=== PATIENT | female | born 1990 | race Caucasian/White ===

== ENCOUNTER 2023-12-23 12:34 | Emergency (ER) | payer BC, SELFPAY ==
[2023-12-23 12:35] VITALS: BP 152/87; PULSE 100; PULSE 81; RESP 15; RESP 16; TEMP 36.5; O2SAT 97; O2SAT 98; BMI 30.1
--- NOTE | 2023-12-23 12:50 | EKG12_ITS ---
Test Reason : CP Blood Pressure : / mmHG Vent. Rate : 090 BPM Atrial Rate : 090 BPM P-R Int : 154 ms QRS Dur : 084 ms QT Int : 368 ms P-R-T Axes : 050 004 031 degrees QTc Int : 450 ms Normal sinus rhythm with sinus arrhythmia Normal ECG Confirmed by MORTEZA MONTOYA, DEMOND ([id number]), pictures editor LALITHA BARNES ([id number]) on 12/25/2023 9:42:15 AM Referred By: CHANDU Confirmed By:DEMOND PRO MD
--- NOTE | 2023-12-23 12:51 | EX.ED.DYSGE1 ---
HPI History of Present Illness Chief Complaint: Anxiety Informant: patient, spouse/S.O. and EMS Narrative Narrative: 33-year-old healthy female with a history of anxiety and panic disorder who states she was driving with her children in the car today, she started feeling some chest tightness. She states basically this led to a panic attack, but the worst one that she has ever had. It lasted less than 5 minutes, but it was so severe she called EMS, she was having carpal spasms, she was having numbness and tingling everywhere including her lower face both upper and lower extremities, she did not have any syncope, she felt short of breath and sweaty at the time. She states she recently had an injection of Mounjaro for weight loss, this is the first time she has had that injection and she has had several side effects that are listed as common side effects since then including nausea which she does not currently have. She states that she has been feeling more anxious and she has had panic attacks like this in the past, she states she really fears the worst out of everything especially when it comes to medical issues. She is feeling much better right now and has no current symptoms physically. [facility] Medical History (Updated 12/23/23 @ 13:[address] Junior Mcduffie MD) Anxiety Panic disorder Allergy/AdvReac Type Severity Reaction Status Date / Time No Known Allergies Allergy Verified 12/23/23 12:38 Surgical History Hx of cholecystectomy Social History Smoking Status: Never smoker ROS ROS ED Constitutional Constitutional ED: Denies chills or fever(s) Eyes Eyes: Denies change in vision or diplopia ENT ENT ED: Denies rhinorrhea or sore throat Cardiovascular Cardiovascular: Reports chest pain; Denies palpitations Respiratory/Chest Respiratory/Chest: Reports dyspnea; Denies cough Gastrointestinal Gastrointestinal: Reports nausea; Denies abdominal pain, diarrhea or vomiting Genitourinary Genitourinary ED: Reports dysuria; Denies hematuria Musculoskeletal Musculoskeletal: Denies back pain or neck pain Integumentary Denies abscess or rash Neurologic Neurologic: Reports paresthesias; Denies headache(s) or weakness Psychiatric Psychiatric: Reports anxiety; Denies depression, suicidal ideation or suicidal thoughts EXAM Physical Exam Const Vital Signs: 12/23/23 12:35 12/23/23 12:35 12/23/23 13:04 Temperature 97.7 F L Temperature Source Temporal Pulse Rate 81 100 Respiratory Rate 15 16 Blood Pressure 152/87 H 152/87 H Blood Pressure Mean 108 108 Pulse Ox 98 97 Oxygen Delivery Method Room Air Room Air Room Air Positive well nourished and well developed General Appearance ED: well developed and NAD HEENT Reports moist mucous membranes normocephalic and atraumatic Eyes PERRL and EOMs intact bilaterally Neck full ROM and supple Resp normal respiratory effort and clear to auscultation bilaterally Cardio regular rate, regular rhythm and no murmurs Rate: Negative for tachycardic GI non-tender and non-distended Auscultation: normoactive bowel sounds Palpation: soft Back/Spine no CVA tenderness General Back: other FROM Extremity normal to inspection General Extremety ED: Negative for edema, pulses abnormal or tenderness General Extremity: Negative for edema or pulses abnormal Neuro oriented x3, CN's II-XII intact bilaterally, no sensory deficits noted and gait normal Sensorium / Orientation: awake and alert Motor Exam: strength 5/5 throughout Psych mental status grossly normal Skin no rashes or lesions noted and no wounds MDM MDM MDM Narrative Medical decision making narrative: Labs are normal, my suspicion is that she was hyperventilating which she admits to doing when I discussed this with her, causing an acute respiratory alkalosis, and shift of electrolytes including potassium with a transient hypokalemia causing her carpopedal spasms and tingling. That seems to have resolved now and clinically she is resolved. Chest x-ray 2 views normal in my interpretation, radiology in agreement. Her EKG is normal. Her troponin is in the single digits. She is still feeling a lot better and appreciative and I do not think we need to do a second troponin measurement for this particular case. She is comfortable going home we discussed reasons to return. Of note, the patient said that she had dysuria for 1 or 2 days and went to urgent care prior to coming here earlier, had a urinalysis she was told was negative for infection she was prescribed Azo and she already took 1. I offered to do another urinalysis but since she already took Azo it will be abnormal and I offered to do a culture but she states the urgent care already did a culture so we opted to avoid doing another urine test. Lab Data Attestation: I reviewed the patient's lab results. Labs: Laboratory Results - last 24 hr 12/23/23 13:01 WBC 9.3 RBC 5.11 Hgb 15.4 H Hct 44.0 MCV 86.1 MCH 30.1 MCHC 35.0 RDW Std Deviation 36.5 RDW Coeff of Anastacio 11.6 Plt Count 265 MPV 10.0 Immature Gran % (Auto) 0.200 Neut % (Auto) 78.9 H Lymph % (Auto) 15.6 L [place] % (Auto) 5.0 Eos % (Auto) 0.1 Baso % (Auto) 0.2 Absolute Neuts (auto) 7.4 Absolute Lymphs (auto) 1.46 Nucleated RBC % 0 Sodium 136 Potassium 3.6 Chloride 103 Carbon Dioxide 26.0 Anion Gap 7 BUN 10 Creatinine 0.77 Estim Creat Clear Calc 108.95 Est GFR (MDRD) Af Amer 110 Est GFR (MDRD) Non-Af 91 BUN/Creatinine Ratio 13.0 Glucose 97 Calcium 9.2 Troponin I High Sens 5 Radiography Diagnostic Testing: Clinical Impression(s) from Imaging Studies Chest X-Ray 12/23/23 13:09 IMPRESSION: Normal x-ray examination of the chest. Electronically Signed: Clinton Morris MD at 13:19 EDT Reading Location ID and State: [facility] / [place] , Service support , Rhythm Strip Rhythm Strip: Sinus Rhythm Rate: 85 Ectopy: None EKG Initial EKG: Attestation: I personally reviewed and interpreted this EKG as follows: Interpretation: Sinus Rhythm and No Acute Injury Pattern Comments: Normal EKG Prior EKG tracings: available for review ( EMS EKG also normal and similar) Discharge Plan Triage Chief Complaint: Anxiety ED Provider: Junior Mcduffie Dx/Rx/DC Orders Clinical Impression: Panic attack, Chest tightness Instructions: ED Panic Attack Primary Care Provider: SHAKEEL TA Referrals: SHAKEEL TA [Other] - As Needed Disposition Disposition: Home, Self Care
--- NOTE | 2023-12-23 13:09 | RAD_ITS ---
STUDY: X-RAY CHEST REASON FOR EXAM: Female, 33 years old. chest pain TECHNIQUE: PA and lateral views of the chest. COMPARISON: None. FINDINGS: The lungs are clear and expanded. There is no demonstrated pleural abnormality. Normal size heart. Normal mediastinum and david. Normal visualized pulmonary arteries. Normal visualized aortic arch and descending thoracic aorta. There are minor degenerative changes of the visualized thoracic spine. Normal visualized ribs, clavicles, and shoulders. There is no demonstrated abnormality of the visualized soft tissue structures of the upper abdomen. Right upper quadrant surgical clips are present. RAD/Chest PA and Lateral IMPRESSION: Normal x-ray examination of the chest. Electronically Signed: Clinton Morris MD at 13:19 EDT ,
[2023-12-23 13:11] LABS: Absolute Lymphocyte Count 1.46 X10^3/uL (0.83-4.51); Absolute Neutrophil Count 7.4 X10^3/uL (2.0-7.7); Basophil# 0.02 X10^3/uL; Basophil% 0.2 % (0-1); Eosinophil# 0.01 X10^3/uL; Eosinophils% 0.1 % (0-5); Hemoglobin 15.4 g/dL (12.0-15.0); Lymphocyte # 1.46 X10^3/ul (0.83-4.51); Lymphocyte % 15.6 % (19-41); Mean Corpuscular Hgb 30.1 pg (27.0-32.0); Mean Corpuscular Volume 86.1 fL (81-99); Monocyte# 0.47 X10^3/uL; NRBC Flagged by Analyzer 0 % (0-5); Neutrophil # 7.35 X10^3/uL (2.7-7.7); Neutrophil % 78.9 % (47-70); Platelet Count 265 K/mm3 (150-450); RBC Distribution Width CV 11.6 % (11.6-14.6); RBC Distribution Width SD 36.5 fl (35.1-43.9); Red Blood Count 5.11 M/mm3 (4.2-5.4); White Blood Count 9.3 K/mm3 (4.4-11.0)
[2023-12-23 13:30] LABS: Anion Gap 7 (5-15); BUN 10 mg/dL (7-18); Calcium,Total 9.2 mg/dL (8.5-10.1); Chloride 103 mmol/L (98-107); Creatinine, Serum 0.77 mg/dL (0.55-1.02); EST Glomerular Filtration Rate 91 mL/min (>60); Est Glom Filt Rate - Afr Amer 110 mL/min (>60); Estimated Creatinine Clearance 108.95 ml/min; Glucose 97 mg/dL (74-106); Potassium 3.6 mmol/L (3.5-5.1); Sodium Level 136 mmol/L (136-145); Troponin-I HS (w/2H Reflex) 5 pg/mL (3.0-54.0)
[2023-12-23 13:51] VITALS: BP 132/92; PULSE 78; RESP 18; TEMP 36.6; O2SAT 95
[2023-12-23 15:08] LABS: Reflex Troponin-HS? (from REC) Y
== END 2023-12-23 14:28 | disposition home or self-care (01) ==
PROVIDERS: Emergency Provider Emergency Medicine; Visit Provider Emergency Medicine
DX: F41.0 Panic disorder [episodic paroxysmal anxiety] (principal); E87.6 Hypokalemia; R07.89 Other chest pain; E87.3 Alkalosis; R29.0 Tetany; R06.00 Dyspnea, unspecified; R30.0 Dysuria; R20.2 Paresthesia of skin
CPT/HCPCS: 71046; 80048; 84484; 85025; 93005; 99283